=== PATIENT | male | born 1970 | race Caucasian/White ===

== ENCOUNTER 2018-04-05 20:55 | Emergency (ER) | payer OTHER, BC ==
[2018-04-05] MEDS ORDERED: PHENYLephrine 0.5% 15 ML NAS SPRAY NASAL (23:00)
[2018-04-05] MEDS ORDERED: SILVER NITRATE SWAB TOP (23:00)
[2018-04-05] MEDS: LIDOCAINE 2% VISC 15 ML CUP PO (23:23)
== END 2018-04-06 00:11 | disposition home or self-care (01) ==
LOC: E/R 20:55
DX: I10 Essential (primary) hypertension (principal); F17.210 Nicotine dependence, cigarettes, uncomplicated; Z79.82 Long term (current) use of aspirin
CPT/HCPCS: 99283; Z7502